=== PATIENT | female | born 1990 | race Caucasian/White ===

== ENCOUNTER 2018-05-01 10:41 | Inpatient (IN) | payer BC ==
[~2018-05-01] VITALS: Ht 154.9 cm; Wt 67.3 kg
[2018-05-01] VITALS (20 sets, daily range): BP systolic 98–124; BP diastolic 55–80; PULSE 72–120; TEMP 98.1–98.3
[~2018-05-01 10:41] MED LIST: BENTYL10 MG PO; BIRTH CONTROL; DOXYCYCLINE 10100 MG PO; EXCEDRIN TENSIO1 CAP PO; FLOVENT 110MCG7.9 GM IH; PROVENTIL0.09 MG/A1 IH; SINGULAIR
[2018-05-01] MEDS ORDERED: LEXAPRO20 MG (10:58)
[2018-05-01] MEDS ORDERED: PRENATAL MVI (10:58)
[2018-05-01 11:34] LABS: BASO % 0.2 % (0.0-2.0); EOS % 0.5 % (0-4.0); GRAN # 6.1 (1.4-6.5); GRAN % 74.7 % (42.2-75.2); HEMOGLOBIN 11.1 g/dl (12.5-16.0); LYMPH # 1.5 (1.2-3.4); LYMPH % 18.2 % (20.0-51.0); MEAN CELL VOLUME 88 fl (80.0-100.0); MEAN CORPUSCULAR HEMOGLOBIN 29 pg (27.0-31.0); MEAN CORPUSCULAR HGB CONC 33 g/dl (33.0-37.0); MEAN PLATELET VOLUME 11.3 fl (7.4-10.4); MONO # 0.5 (0.1-0.6); MONO % 5.7 % (1.7-9.3); PLATELET COUNT 247 K/mm3 (130-400); REDCELL DISTRIBUTION WIDTH-CV 12.4 % (11.5-14.5)
[2018-05-01 11:35] LABS: HEMATOCRIT 33.4 % (37.0-47.0)
[2018-05-01] MEDS ORDERED: MOTRIN 800800 MG/TAB PO (13:07)
[2018-05-01] MEDS ORDERED: PERCOCET 325 MG1 TA2 PO (13:07)
[2018-05-02 01:20] VITALS: BP 101/58; PULSE 68; TEMP 98
[2018-05-02 05:55] VITALS: BP 87/59; PULSE 63; TEMP 98.6
[2018-05-02 09:30] VITALS: BP 110/70; PULSE 82; TEMP 97.7
--- NOTE | 2018-05-02 12:28 | NUR ---
It Quality Assurance Analyst visited with mom and dad and offered congrats.
[2018-05-02 16:30] VITALS: BP 118/70; PULSE 88; TEMP 98.1
[2018-05-02 20:00] VITALS: BP 116/63; PULSE 76; TEMP 98.2
[2018-05-03 09:11] VITALS: BP 94/58; PULSE 80; TEMP 97.8
[2018-05-03 19:45] VITALS: BP 105/61; PULSE 80; TEMP 98.2
[2018-05-04 08:40] VITALS: BP 112/63; PULSE 74; TEMP 97.9
--- NOTE | 2018-05-04 10:07 | NUR ---
Initial visit attempt; Physician with patient. Docket Specialist left card of congratulations and information regarding the availability of spiritual care at [facility].
== END 2018-05-04 10:00 | disposition home or self-care (01) | DRG 788 ==
LOC: LDRO 10:41 → LDR 11:08 → OB 12:49
PROVIDERS: ADMIT Obstetrics & Gynecology
PROC: 10D00Z1 Extraction of Products of Conception, Low, Open Approach (ICD-10-PCS; principal; 2018-05-01)
DX: O32.1XX0 Maternal care for breech presentation, not applicable or unspecified (principal); Z3A.38 38 weeks gestation of pregnancy; Z37.0 Single live birth; O69.81X0 Labor and delivery complicated by cord around neck, without compression, not applicable or unspecified; J45.909 Unspecified asthma, uncomplicated; O99.344 Other mental disorders complicating childbirth; F41.9 Anxiety disorder, unspecified
CPT/HCPCS: J0690; J1885; J2270; J2405; J2540; J2590; J7120

== ENCOUNTER 2021-08-06 10:00 | Outpatient (RCR) | payer BC ==
[~2021-08-06 10:00] MED LIST changes: +LEXAPRO20 MG; +MOTRIN 800800 MG/TAB PO; +PERCOCET 325 MG1 TA2 PO; +PRENATAL MVI
== END 2021-08-11 | disposition home or self-care (01) ==
LOC: WSOT
DX: S62.624D Displaced fracture of middle phalanx of right ring finger, subsequent encounter for fracture with routine healing (principal); X58.XXXD Exposure to other specified factors, subsequent encounter